=== PATIENT | female | born 1975 | race African-American/Black ===

== ENCOUNTER 2018-03-02 13:39 | Emergency (ER) | payer OTHER ==
[~2018-03-02] VITALS: Ht 154.9 cm; Wt 54.5 kg
[2018-03-02 13:45] VITALS: TEMP 98.5
[2018-03-02 14:58] LABS: BASO # 0.1 (0.0-0.2); BASO % 0.6 % (0.0-2.0); EOS % 0.2 % (0-4.0); GRAN # 8.3 (1.4-6.5); GRAN % 83.4 % (42.2-75.2); HEMATOCRIT 44.3 % (37.0-47.0); LYMPH % 10.3 % (20.0-51.0); MEAN CELL VOLUME 79 fl (80.0-100.0); MEAN CORPUSCULAR HEMOGLOBIN 25 pg (27.0-31.0); MEAN CORPUSCULAR HGB CONC 32 g/dl (33.0-37.0); MEAN PLATELET VOLUME 9.9 fl (7.4-10.4); MONO # 0.5 (0.1-0.6); MONO % 5.2 % (1.7-9.3); PLATELET COUNT 286 K/mm3 (130-400); RED BLOOD COUNT 5.64 M/mm3 (4.10-5.30); REDCELL DISTRIBUTION WIDTH-CV 21.7 % (11.5-14.5)
[2018-03-02 15:04] LABS: ALBUMIN 4.1 gm/dL (3.5-5.0); BILIRUBIN,TOTAL 0.4 mg/dL (0.0-1.0); CALCIUM 9.2 mg/dL (8.4-10.2); CREATININE, serum 0.67 mg/dL (0.52-1.25); POTASSIUM 3.9 mmol/L (3.4-5.0); TOTAL PROTEIN 7.3 gm/dL (6.4-8.2)
[2018-03-02 15:40] LABS: COLLECTION METHOD CLEAN CATCH
[2018-03-02 15:46] LABS: MUCOUS Present /lpf; PH 8 (5-8); URINE APPEARANCE Clear; URINE BACTERIA None Seen /hpf; URINE BILIRUBIN Negative (NEGATIVE); URINE BLOOD Negative (NEGATIVE); URINE COLOR Yellow; URINE GLUCOSE Negative (NEGATIVE); URINE KETONE 1+ (NEGATIVE); URINE LEUKOCYTE ESTERASE Negative (NEGATIVE); URINE NITRATE Negative (NEGATIVE); URINE PROTEIN(semi-quant) Negative (NEGATIVE); URINE RBC 0-2 /hpf; URINE UROBILINOGEN Negative (NEGATIVE)
[2018-03-02] MEDS ORDERED: ZOFRAN ODT4 MG PO (16:32)
[2018-03-02 16:40] VITALS: BP 111/72; PULSE 68
[2018-03-03] MEDS ORDERED: TRAVEL SICKNESS25 MG PO (13:25)
== END 2018-03-02 16:40 | disposition home or self-care (01) ==
LOC: COL.ER 13:39
PROVIDERS: Nurse Practitioner Primary Care
DX: E86.0 Dehydration (principal); F10.129 Alcohol abuse with intoxication, unspecified; F17.210 Nicotine dependence, cigarettes, uncomplicated
CPT/HCPCS: J0780; J1885; J2405; J7030

== ENCOUNTER 2018-03-03 11:24 | Emergency (ER) | payer OTHER ==
[~2018-03-03] VITALS: Ht 154.9 cm; Wt 53.2 kg
[~2018-03-03 11:24] MED LIST: ZOFRAN ODT4 MG PO
[2018-03-03 11:26] VITALS: BP 110/60; TEMP 98.7
[2018-03-03] MEDS ORDERED: TRAVEL SICKNESS25 MG PO (13:25)
[2018-03-03 13:47] VITALS: PULSE 78
== END 2018-03-03 13:48 | disposition home or self-care (01) ==
LOC: COL.ER 11:24
DX: F07.81 Postconcussional syndrome (principal); I10 Essential (primary) hypertension

== ENCOUNTER 2018-07-06 18:09 | Emergency (ER) | payer OTHER ==
[~2018-07-06] VITALS: Ht 154.9 cm; Wt 52.3 kg
[~2018-07-06 18:09] MED LIST changes: +TRAVEL SICKNESS25 MG PO
[2018-07-06 18:14] VITALS: TEMP 98.4
[2018-07-06 19:04] LABS: COLLECTION METHOD CLEAN CATCH
[2018-07-06 19:10] LABS: BASO # 0.1 (0.0-0.2); BASO % 0.5 % (0.0-2.0); EOS # 0.1 (0.0-0.7); EOS % 0.5 % (0-4.0); GRAN # 7.6 (1.4-6.5); HEMATOCRIT 42.1 % (37.0-47.0); HEMOGLOBIN 13.9 g/dl (12.5-16.0); LYMPH % 18.9 % (20.0-51.0); MEAN CELL VOLUME 82 fl (80.0-100.0); MEAN CORPUSCULAR HEMOGLOBIN 27 pg (27.0-31.0); MEAN CORPUSCULAR HGB CONC 33 g/dl (33.0-37.0); MONO # 0.8 (0.1-0.6); MONO % 7.7 % (1.7-9.3); PLATELET COUNT 246 K/mm3 (130-400); RED BLOOD COUNT 5.11 M/mm3 (4.10-5.30); REDCELL DISTRIBUTION WIDTH-CV 14.1 % (11.5-14.5)
[2018-07-06 19:13] LABS: PH 6 (5-8); SQUAMOUS EPITHELIAL 0-2 /hpf; URINE APPEARANCE Clear; URINE BACTERIA None Seen /hpf; URINE BILIRUBIN Negative (NEGATIVE); URINE BLOOD Negative (NEGATIVE); URINE COLOR Colorless; URINE GLUCOSE Negative (NEGATIVE); URINE KETONE Negative (NEGATIVE); URINE LEUKOCYTE ESTERASE Negative (NEGATIVE); URINE NITRATE Negative (NEGATIVE); URINE PROTEIN(semi-quant) Negative (NEGATIVE); URINE RBC 0-2 /hpf; URINE UROBILINOGEN Negative (NEGATIVE)
[2018-07-06 19:25] LABS: ALANINE AMINOTRANSFERASE 41 U/L (9-52); ALBUMIN 4.3 gm/dL (3.5-5.0); ALKALINE PHOSPHATASE 96 U/L (50-136); ANION GAP 9 mmol/L (7-16); AST,SGOT 25 U/L (15-37); BILIRUBIN,TOTAL 0.5 mg/dL (0.0-1.0); BLOOD UREA NITROGEN 11 mg/dL (7-17); CALCIUM 9.4 mg/dL (8.4-10.2); CARBON DIOXIDE 24 mmol/L (22-30); CHLORIDE 104 mmol/L (98-107); CREATININE, serum 0.94 mg/dL (0.52-1.25); GLUCOSE 93 mg/dL (74-106); LIPASE 73 U/L (23-300); POTASSIUM 3.9 mmol/L (3.4-5.0); SODIUM 137 mmol/L (137-145); TOTAL PROTEIN 7.4 gm/dL (6.4-8.2)
[2018-07-06 19:34] LABS: C-REACTIVE PROTEIN < 0.5 mg/dL (0.0-0.9); TROPONIN-I < 0.012 ng/mL (0.000-0.035)
[2018-07-06] MEDS ORDERED: CIPRO 500MG TA500 MG PO (21:44)
[2018-07-06] MEDS ORDERED: FLAGYL500 MG PO (21:44)
[2018-07-06 21:58] VITALS: BP 110/64; PULSE 70
== END 2018-07-06 21:58 | disposition home or self-care (01) ==
LOC: COL.ER 18:09
PROVIDERS: Emergency Medicine
DX: K52.9 Noninfective gastroenteritis and colitis, unspecified (principal); F17.210 Nicotine dependence, cigarettes, uncomplicated
CPT/HCPCS: J1170; J2405; J7030; Q9967

== ENCOUNTER 2019-03-06 20:06 | Emergency (ER) | payer OTHER ==
[~2019-03-06] VITALS: Ht 154.9 cm; Wt 54.1 kg
[~2019-03-06 20:06] MED LIST changes: +CIPRO 500MG TA500 MG PO; +FLAGYL500 MG PO
[2019-03-06 20:11] VITALS: BP 169/74; TEMP 97.3
[2019-03-06] MEDS ORDERED: PREDNISONE20 MG PO (20:44)
[2019-03-06 21:07] VITALS: PULSE 67
== END 2019-03-06 21:07 | disposition home or self-care (01) ==
LOC: COL.ER 20:06
DX: S63.502A Unspecified sprain of left wrist, initial encounter (principal); S63.501A Unspecified sprain of right wrist, initial encounter; F17.210 Nicotine dependence, cigarettes, uncomplicated; X50.3XXA Overexertion from repetitive movements, initial encounter; Y92.59 Other trade areas as the place of occurrence of the external cause

== ENCOUNTER → 2019-06-03 | Outpatient (CLI) | payer OTHER ==
[~2019-06-03] MED LIST changes: +PREDNISONE20 MG PO
== END ==
LOC: MC.RAD 13:00
DX: N63.0 Unspecified lump in unspecified breast (principal)
CPT/HCPCS: G0279

== ENCOUNTER 2020-06-18 11:48 | Emergency (ER) | payer OTHER ==
[~2020-06-18] VITALS: Ht 154.9 cm; Wt 50.0 kg
[2020-06-18 11:55] VITALS: TEMP 97.4
[2020-06-18 14:05] VITALS: BP 121/80; PULSE 73
== END 2020-06-18 14:05 | disposition home or self-care (01) ==
LOC: COL.ER 11:48
DX: S09.90XA Unspecified injury of head, initial encounter (principal); F17.210 Nicotine dependence, cigarettes, uncomplicated; Z88.5 Allergy status to narcotic agent; Z88.6 Allergy status to analgesic agent; W22.8XXA Striking against or struck by other objects, initial encounter; Y99.0 Civilian activity done for income or pay

== ENCOUNTER 2021-08-06 11:46 | Emergency (ER) | payer BC ==
[~2021-08-06] VITALS: Ht 154.9 cm; Wt 45.5 kg
[2021-08-06 11:53] VITALS: TEMP 98.4
[2021-08-06] MEDS ORDERED: NAPROSYN500 MG PO (13:21)
[2021-08-06] MEDS ORDERED: FLEXERIL 1010 MG/TAB PO (13:21)
[2021-08-06 13:29] VITALS: BP 119/81; PULSE 72
== END 2021-08-06 13:29 | disposition home or self-care (01) ==
LOC: COL.ER 11:46
DX: M62.838 Other muscle spasm (principal); F17.210 Nicotine dependence, cigarettes, uncomplicated; Z88.6 Allergy status to analgesic agent
CPT/HCPCS: J1885

== ENCOUNTER 2022-01-26 13:57 | Emergency (ER) | payer BC ==
[~2022-01-26] VITALS: Ht 154.9 cm; Wt 45.5 kg
[~2022-01-26 13:57] MED LIST changes: +FLEXERIL 1010 MG/TAB PO; +NAPROSYN500 MG PO
[2022-01-26 14:25] VITALS: TEMP 97.6
[2022-01-26] MEDS ORDERED: CRUTCHES MC (15:39)
[2022-01-26 16:04] VITALS: BP 148/99; PULSE 86
== END 2022-01-26 16:04 | disposition home or self-care (01) ==
LOC: COL.ER 13:57
DX: M25.562 Pain in left knee (principal); F17.210 Nicotine dependence, cigarettes, uncomplicated
CPT/HCPCS: J1885